=== PATIENT | male | born 1935 | race Caucasian/White ===

== ENCOUNTER 2024-05-22 12:37 | Inpatient (IN) | payer OTHER ==
[~2024-05-22] VITALS: Ht 167.6 cm; Wt 78.0 kg
[2024-05-22] MEDS ORDERED: NS 1,000 ML IV SCH (15:30)
[2024-05-22] MEDS ORDERED: CefTRIAXone Sodium 1,000 MG in NS 100 ML IV ONE (15:30)
[2024-05-22] MEDS ORDERED: Guaifenesin/Dextromethorphan Syrup 5 ML UDC PO PRN (16:20)
[2024-05-22] MEDS ORDERED: Ondansetron HCl 2 MG / ML 2ML Vial IV PRN (16:25)
[2024-05-22] MEDS ORDERED: Albuterol 2.5 MG/3 ML VIAL INH PRN (16:25)
[2024-05-22] MEDS ORDERED: Lactated Ringer's 1,000 ML IV SCH (16:25)
[2024-05-22] MEDS ORDERED: FLU VACC TS2024-25(6MOS UP)/PF 45 MCG/0.5 ML SYRINGE IM PRN (16:25)
[2024-05-22] MEDS ORDERED: Azithromycin 500 MG in NS 250 ML IV ONE (16:50)
[2024-05-22] MEDS ORDERED: Oseltamvir Phosphate 6 MG/ML 1MLORALSYR PO ONE (16:53)
[2024-05-22 18:35] LABS: Source, Urine Clean Catch
[2024-05-22 18:39] LABS: Appearance, Urine Hazy (Clear); Bilirubin, Urine Neg (Neg); Blood, Urine 2+ (Neg); Color, Urine Yellow (P-Yellow); Glucose Qualitative, Urine Neg (Neg); Ketones, Urine 3+ (Neg); Leukocyte Esterase, Urine 1+ (Neg); Nitrite, Urine Neg (Neg); Protein, Urine 4+ (Neg); Urobilinogen, Urine 1+ (Normal)
[2024-05-22 18:48] LABS: Amorphous Light (0-Heavy)
[2024-05-22 18:49] LABS: Red Blood Cells, Urine 0-2 /hpf (0-2)
[2024-05-22 18:50] LABS: Bacteria Mod /hpf; Squamous Epithelial Cells Not Seen /hpf (Few); Transitional Epithelial Cells Rare /hpf (0-Rare)
[2024-05-22 19:04] VITALS: BP 129/72
[2024-05-22 20:34] VITALS: BP 122/66
[2024-05-22] MEDS ORDERED: Lactobacil 2-S.Thermo-Bifido 1 1 Cap PO SCH ×2 (21:00)
[2024-05-22 22:00] LABS: Adenovirus Not Detected (NOT DETECT); Coronavirus 229E Not Detected (NOT DETECT); Coronavirus HKU1 Not Detected (NOT DETECT); Coronavirus NL63 Not Detected (NOT DETECT); Coronavirus OC43 Not Detected (NOT DETECT); Human Metapneumovirus Not Detected (NOT DETECT); Human Rhinovirus/Enterovirus Not Detected (NOT DETECT); Influenza A/H3 Not Detected (NOT DETECT); SARS-Cov-2 (COVID-19), BioFire Not Detected (NOT DETECT)
[2024-05-22 22:01] LABS: Bordetella pertussis Not Detected (NOT DETECT); Chlamydophila pneumoniae Not Detected (NOT DETECT); Influenza A/2009-H1 Detected (NOT DETECT); Influenza A/H1 Not Detected (NOT DETECT); Influenza B Not Detected (NOT DETECT); Mycoplasma pneumoniae Not Detected (NOT DETECT); Parainfluenza Virus 1 Not Detected (NOT DETECT); Parainfluenza Virus 2 Not Detected (NOT DETECT); Parainfluenza Virus 3 Not Detected (NOT DETECT); Parainfluenza Virus 4 Not Detected (NOT DETECT); Respiratory Syncytial Virus Not Detected (NOT DETECT)
--- NOTE | 2024-05-22 22:17 | NUR ---
ADMISSION NOTE PT ARRIVED TO RM 359 AT 1900. PT WAS ACCOMPANIED BY GRAND DAUGHTER. PT WAS AOX4, CALM AND COOPERATIVE. PT ON 2LNC. TELE WAS ALSO STARTED AND CONFIRMED. CALL LIGHT WAS EXPLAINED TO PT, AND PT VERBALIZED UNDERSTANDING. BED LOCKED IN LOWEST POSITION. THIS RN TO ASSUME CARE.
[2024-05-23 00:12] VITALS: BP 131/67
[2024-05-23 03:56] VITALS: BP 145/75
[2024-05-23 03:57] VITALS: BP 145/75
[2024-05-23 05:31] LABS: Hematocrit 26.2 % (37.0-53.0); Hemoglobin 9.5 g/dL (13.5-17.5); Mean Corpuscular HGB 39.6 pg (26.0-34.0); Mean Corpuscular HGB Conc 36.3 g/dL (31.5-36.5); Mean Platelet Volume 10.1 fL (9.1-12.4); Platelet Count 105 K/mm3 (150-400); RDW Standard Deviation 57.6 fL (35.1-46.3)
[2024-05-23 05:35] LABS: Mean Corpuscular Volume 109 fL (80-100)
[2024-05-23 05:36] LABS: White Blood Cell Count 70.16 K/mm3 (4.00-11.30)
[2024-05-23 06:04] LABS: Albumin, Blood 2.1 g/dL (3.4-5.0); Albumin/Globulin Ratio 0.6 (0.8-1.8); Bilirubin, Total 0.5 mg/dL (0.1-1.0); Calcium, Blood 7.7 mg/dL (8.5-10.1); Creatinine, Blood 0.8 mg/dL (0.60-1.20); Globulin, Blood 3.8 g/dL (2.2-4.0); Potassium, Blood 4.1 mmol/L (3.5-5.5); Total Protein, Blood 5.9 g/dL (6.4-8.2)
[2024-05-23 06:25] LABS: BASOPHILS PERCENT MAN 0 % (0-2); EOSINOPHILS PERCENT MAN 0 % (0-6); LYMPHOCYTES % ATYPICAL MANUAL 11 % (0-0); LYMPHOCYTES ABSOLUTE MAN 64.54 K/mm3 (0.84-5.20); LYMPHOCYTES PERCENT MAN 81 % (21-46); MONOCYTES PERCENT MAN 1 % (4-13); NEUTROPHILS ABSOLUTE MAN 4.91 K/mm3 (1.96-9.15); SEG NEUTROPHILS PERCENT MAN 7 % (41-73); TOTAL CELLS COUNTED 100
--- NOTE | 2024-05-23 06:37 | NUR ---
SHIFT SUMMARY PT HAS BEEN RESTING IN BED COMFORTABLY. PT ARRIVED ON UNIT AT 1900. HIS DAUGHTER ACCOMPANIED HIM, AND HAS STAYED WITH HIM THROUGHOUT THE NIGHT. PT HAS BEEN AOX4, CALM AND COOPERATIVE. TELEMETRY IS ON. PT HAS BEEN UP TO GO TO RESTROOM WITH WALKER AND NURSE ASSIST. PT HAS HAD NO COMPLAINTS. PT HAD UNEVENTFUL EVENING.
[2024-05-23 08:31] VITALS: BP 136/72
[2024-05-23] MEDS ORDERED: CefTRIAXone Sodium 1,000 MG in NS 100 ML IV SCH (09:00)
[2024-05-23] MEDS ORDERED: PredniSONE 20 MG Tab PO SCH (09:00)
[2024-05-23] MEDS ORDERED: Oseltamvir Phosphate 6 MG/ML 1MLORALSYR PO SCH (09:00)
[2024-05-23] MEDS ORDERED: Enoxaparin 40 MG/0.4 ML SYR SC SCH (09:00)
[2024-05-23] MEDS ORDERED: Azithromycin 200 MG/5 ML SUSP 5ML UDC PO SCH (09:00)
[2024-05-23] MEDS ORDERED: Acetaminophen 325 MG TABLET PO PRN (14:40)
[2024-05-23 15:13] VITALS: BP 126/68
--- NOTE | 2024-05-23 18:14 | NUR ---
NO CHANGES FOR THE PT. PT HAS SOB UPON AMBULATION. AT REST PT IS ON 2LNC AND UPON AMBULATION WILL REQUIRE 3-4 TO SUSTAIN 95%>. PT HAD NO C/O PAIN DURING THE SHIFT. FAMILY AT BEDSIDE FOR THE SHIFT WITH NO QUESTIONS OR CONCERNS.
[2024-05-23 20:25] VITALS: BP 131/75
[2024-05-24 00:14] VITALS: BP 128/83
[2024-05-24 05:00] VITALS: BP 131/78
--- NOTE | 2024-05-24 05:33 | NUR ---
SHIFT SUMMARY PT HAS BEEN RESTING IN BED COMFORTABLY OVERNIGHT. PT HAS BEEN AOX4, CALM AND COOPERATIVE. HE HAS BEEN ON 2L AT REST, AND 3-4 WHEN UP. PT TRANSF[place] [facility] [place]. PT HAD NO COMPLAINTS OVERNIGHT. NO ACUTE EVENTS OVERNIGHT.
[2024-05-24 08:29] VITALS: BP 135/72
[2024-05-24 09:20] LABS: Hematocrit 30.7 % (37.0-53.0); Hemoglobin 10.4 g/dL (13.5-17.5); Mean Corpuscular HGB 35.4 pg (26.0-34.0); Mean Corpuscular HGB Conc 33.9 g/dL (31.5-36.5); Mean Platelet Volume 10.2 fL (9.1-12.4); NRBC ABSOLUTE 0.02 K/mm3 (0.00-0.02); Platelet Count 123 K/mm3 (150-400); RDW Coefficient Variation 15.2 % (11.7-14.2); RDW Standard Deviation 55.7 fL (35.1-46.3); Red Blood Cell Count 2.94 M/mm3 (4.30-5.90)
[2024-05-24 09:22] LABS: Mean Corpuscular Volume 104 fL (80-100)
[2024-05-24 09:24] LABS: White Blood Cell Count 93.88 K/mm3 (4.00-11.30)
[2024-05-24 09:34] LABS: Bun/Creatinine Ratio 29.7 (12.0-20.0); Calcium, Blood 7.8 mg/dL (8.5-10.1); Creatinine, Blood 0.84 mg/dL (0.60-1.20); Potassium, Blood 4.4 mmol/L (3.5-5.5)
[2024-05-24] MEDS ORDERED: Zinc Sulfate 220 MG Cap (Provides 50MG) PO SCH (10:55)
[2024-05-24 11:19] VITALS: BP 140/75
[2024-05-24 11:37] LABS: BASOPHILS PERCENT MAN 0 % (0-2); EOSINOPHILS PERCENT MAN 0 % (0-6); LYMPHOCYTES ABSOLUTE MAN 92.94 K/mm3 (0.84-5.20); LYMPHOCYTES PERCENT MAN 99 % (21-46); MONOCYTES PERCENT MAN 0 % (4-13); NEUTROPHILS ABSOLUTE MAN 0.93 K/mm3 (1.96-9.15); SEG NEUTROPHILS PERCENT MAN 1 % (41-73); TOTAL CELLS COUNTED 100
[2024-05-24] MEDS ORDERED: Mometasone Furoate Inhaler 220 mcg 14 ACT INH SCH (11:40)
[2024-05-24] MEDS ORDERED: Ipratropium/Albuterol SulF 2.5-0.5MG/3 ML Amp INH SCH (14:50)
[2024-05-24] MEDS ORDERED: Albuterol 2.5 MG/3 ML VIAL INH PRN (14:50)
[2024-05-24] MEDS ORDERED: MethylPREDNISolone Sod Succ 125 MG Vial IV SCH (16:00)
[2024-05-24 16:01] VITALS: BP 123/73
--- NOTE | 2024-05-24 17:50 | NUR ---
PT WBC KEEP ON OZIEL ARNOLD AWARE. T HAD TEM EARLIER IN THE DAY WITH HIGH RESPERATIONS, PRN TYLENOL RESOLVED TEMP. PT HAS NO C/O PAJN, SOB OR CHEST PAIN. SEE CHART FOR DETAILS ON VITALS AND LABS. PT HAS NO QUESTIONS OR CONCERNS AT THIS TIME
[2024-05-24] MEDS ORDERED: Piperacillin/Tazobactam Sod 4.5 GM in NS 100 ML IV SCH (18:00)
[2024-05-24 20:24] VITALS: BP 129/82
[2024-05-25 00:33] VITALS: BP 117/68
[2024-05-25 04:18] VITALS: BP 123/71
--- NOTE | 2024-05-25 04:26 | NUR ---
SHIFT SUMMARY; PATIENT REMAINED IN BED ALL SHIFT WAS ABLE TO VOID IN URINAL AND ALSO INCONT OF URINE. GAVE PRN TYLENOL AND ROBITUSSIN. TELE SR 85. REMAINS ON DROPLET ISOLATION.
[2024-05-25 05:13] LABS: Hematocrit 28.5 % (37.0-53.0); Hemoglobin 9.7 g/dL (13.5-17.5); Mean Corpuscular HGB 34.8 pg (26.0-34.0); Mean Corpuscular Volume 102 fL (80-100); Mean Platelet Volume 10.7 fL (9.1-12.4); NRBC ABSOLUTE 0.02 K/mm3 (0.00-0.02); Platelet Count 119 K/mm3 (150-400); RDW Coefficient Variation 15.1 % (11.7-14.2); RDW Standard Deviation 54.1 fL (35.1-46.3); Red Blood Cell Count 2.79 M/mm3 (4.30-5.90)
[2024-05-25 05:46] LABS: White Blood Cell Count 87.83 K/mm3 (4.00-11.30)
[2024-05-25 06:33] LABS: Bun/Creatinine Ratio 31.3 (12.0-20.0); Calcium, Blood 7.4 mg/dL (8.5-10.1); Creatinine, Blood 0.86 mg/dL (0.60-1.20); Potassium, Blood 4.4 mmol/L (3.5-5.5)
[2024-05-25] MEDS ORDERED: NS 250 ML IV PRN (06:40)
[2024-05-25 06:58] LABS: BASOPHILS PERCENT MAN 0 % (0-2); EOSINOPHILS PERCENT MAN 0 % (0-6); LYMPHOCYTES ABSOLUTE MAN 83.43 K/mm3 (0.84-5.20); LYMPHOCYTES PERCENT MAN 95 % (21-46); MONOCYTES ABSOLUTE MAN 3.51 K/mm3 (0.16-1.47); MONOCYTES PERCENT MAN 4 % (4-13); NEUTROPHILS ABSOLUTE MAN 0.87 K/mm3 (1.96-9.15); SEG NEUTROPHILS PERCENT MAN 1 % (41-73); TOTAL CELLS COUNTED 100
[2024-05-25 09:31] VITALS: BP 129/63
[2024-05-25 13:04] VITALS: BP 124/60
--- NOTE | 2024-05-25 16:45 | NUR ---
SUMMARY PATIENT REQUIRING MORE OXYGEN TODAY. AFTER GETTING UP TO BSC AND UP TO CHAIR THIS AM HAD TO BE INCREASED TO 8L ON HIGH FLOW NASAL CANNULA. WHEN DR. BRISCOE CAME TO ROUND NOTIFIED HER OF INCREASED NEED. SHE ORDERED CONTINUOUS PULSE OX MONITORING, INCENTIVE SPIROMETER THEARPY AND FLUTTER VALVE THERAPY. PATIENT REMAINED IN CHAIR FOR A COUPLE HOURS BUT IS BACK IN BED NOW. DECREASED O2 TO 7L NC AND IS SATTING 90-91% FAMILY REMINDING PATIENT ABOUT BREATHING THERAPIES WHEN STAFF NOT IN ROOM. NONSKID SOCKS ON. BED ALARM SET WHEN LEAVING ROOM. CHAIR ALARM WHEN UP IN CHAIR. PATIENT DOES NOT CALL APPROPRIATELY WHEN ALONE BUT FAMILY HAS BEEN PRESENT MOST OF THE DAY AND ABLE TO HELP PATIENT MAKE NEEDS KNOWN.
[2024-05-25 17:50] VITALS: BP 131/70
[2024-05-25 21:16] VITALS: BP 141/77
[2024-05-26 00:12] VITALS: BP 126/72
[2024-05-26 04:12] VITALS: BP 128/73
--- NOTE | 2024-05-26 05:05 | NUR ---
SHIFT SUMMARY NOC PT A/O X 4. EKWOK AND PLEASANT AND COOPERATIVE WITH CARE. DURNG CHANGE OF SHIFT PT WAS ON 7L/HFNC SITTING ON BSC, BUT DESATTED INTO LOW 80'S W/O RECOVERY, AND WAS PLACED ON 10L/HFNC TO MAINTAIN SPO2 >90%. PT STILL COUGHING UP THICK CALZADA SPUTUM. PT ON TELE SINUS/BBB IN 80'S. PT RECEIVING IV ABX FOR WBC 87.83. PT ON DROPLET ISOLATION FOR INFLUENZA A. PT CURRENTLY RESTING WITH BED IN LOWEST POSITION, AND CALL LIGHT WITHIN REACH.
[2024-05-26 07:17] VITALS: BP 122/75
--- NOTE | 2024-05-26 08:51 | NUR ---
pt is sitting in bed with family in room, a/ox4, pleasant and cooperative with care, follows commands well, denies pain, lungs are clear in upper finn, dim course in bases, currently on via high flow cannula, reports productive cough of white sputum, hrr, tele in place running sr with bbb per monitor, see strip, 1+ edema noted to b/l le, ppp+1, cap refill<3 sec, vs stable, afebrile, piv to rac site is clear and patent, infusing tko at this time, can ambulate with a walker, but has resp intolerance at this time, skin has scattered bruising otherwise clear,mary ramos, call light in reach.
--- NOTE | 2024-05-26 13:55 | NUR ---
DISCUSSED CASE WITH PROVIDER. PULMONOLOGY CONSULTED AT THIS TIME. PATIENT IS CURRENTLY A DNR AND IS PLANNING OF FOLLOWING UP WITH HEMOTOLOGY AFTER DISCHARGE.
[2024-05-26 14:34] VITALS: BP 142/73
[2024-05-26] MEDS ORDERED: Vancomycin HCL 1,500 MG in NS 250 ML IV ONE (15:10)
[2024-05-26 15:33] LABS: PCO2 Arterial 30.7 mmHg (35-45); PO2 Arterial 50.9 mmHg (80-100); pH Blood Arterial 7.51 (7.35-7.45)
[2024-05-26] MEDS ORDERED: Furosemide 10 MG/ML 4ML Vial IV SCH (18:00)
[2024-05-26 18:38] LABS: Magnesium, Blood 2.5 mg/dL (1.6-2.4); Phosphorus, Blood 2.1 mg/dL (2.5-4.9); Uric Acid, Blood 2.6 mg/dL (3.5-7.2)
--- NOTE | 2024-05-26 19:20 | NUR ---
pt is now on airvo, casing material weigher consulted, will keep on medical for now, will azul, after lasix was administered pt was incont with bed change, key cath placed for incont and activity intol, draining clear yellow urine, 14f, placed without diff, pt is breathing a bit easier this evening. call light in reach.
[2024-05-26 19:38] VITALS: BP 133/67
[2024-05-27 00:10] VITALS: BP 130/73
[2024-05-27 04:16] VITALS: BP 125/71
--- NOTE | 2024-05-27 04:31 | NUR ---
SHIFT SUMMARY NOC PT A/O X 4, TUSCARORA. PLEASANT AND COOPERATIVE WITH CARE. VSS. PT PLACED ON AIRVO 45L @ 74% YESTERDAY AFTERNOON TO MAINTAIN SPO2 >92%. PT HAS MAINTAINED SPO2 >92% T/O SHIFT. PT HAD COLE PLACED DURING CHANGE OF SHIFT DUE TO DIURESING. PT HAS HAD GOOD OUTPUT. PT RECEIVING IV ABX FOR INFECTION. PT FAMILY REMAINED WITH PT BEDSIDE FOR DURATION OF SHIFT. PT ON DROPLET ISOLATION FOR INFLUENZA A. PT ON TELE SINUS/BBB IN 80'S. PT CURRENTLY RESTING WITH BED IN LOWEST POSIITION, AND CALL LIGHT WITHIN REACH.
[2024-05-27 06:13] LABS: Bun/Creatinine Ratio 34.5 (12.0-20.0); Calcium, Blood 7.2 mg/dL (8.5-10.1); Creatinine, Blood 0.96 mg/dL (0.60-1.20); Magnesium, Blood 2.4 mg/dL (1.6-2.4); Phosphorus, Blood 4.2 mg/dL (2.5-4.9); Potassium, Blood 3.8 mmol/L (3.5-5.5)
[2024-05-27 08:44] VITALS: BP 129/71
[2024-05-27 13:17] VITALS: BP 122/70
[2024-05-27] MEDS ORDERED: Vancomycin HCL 1,250 MG in NS 250 ML IV SCH (15:00)
[2024-05-27 17:56] VITALS: BP 151/78
[2024-05-27] MEDS ORDERED: Ibuprofen 400 MG Tab PO PRN (18:50)
[2024-05-27 19:50] VITALS: BP 125/60
--- NOTE | 2024-05-27 21:21 | NUR ---
DR HASSAN CALLED AND REPORTED IF PATIENT TEMP IS NOT LOWER THAN TRANSFER TO PCU. TEMP WAS 102.8 DOWN TO 98.5. DAY SHIFT RN REPORTS TYLENOL GIVEN EARLIER. DR HASSAN ALSO ORDERED IBUPROFEN 400 FOR FEVER PRN. WCTM.
[2024-05-28 00:33] VITALS: BP 132/64
[2024-05-28 04:57] VITALS: BP 140/67
[2024-05-28 05:09] LABS: Hemoglobin 9.2 g/dL (13.5-17.5); Mean Corpuscular HGB 35.2 pg (26.0-34.0); Mean Corpuscular HGB Conc 34.1 g/dL (31.5-36.5); Mean Corpuscular Volume 103 fL (80-100); Mean Platelet Volume 10.8 fL (9.1-12.4); NRBC ABSOLUTE 0.04 K/mm3 (0.00-0.02); Platelet Count 105 K/mm3 (150-400); RDW Coefficient Variation 16.2 % (11.7-14.2); RDW Standard Deviation 52.2 fL (35.1-46.3); Red Blood Cell Count 2.61 M/mm3 (4.30-5.90)
--- NOTE | 2024-05-28 05:17 | NUR ---
SHIFT SUMMARY PATIENT HAD NO ACUTE CHANGES. ALERT ORIENTED AND WRANGELL. COLE PATENT AND DRAINING TO GRAVITY. ON AIRVO 45 L @ 74%. TELE MONITOR NSR 79. DENIES CHEST PAIN AND N/V. VSS/AFEBRILE @ 98.5. NEXT TEMP 100.8 AND TYLENOL 650 MG GIVEN. FAMILY PRESENT AT SHIFT CHANGE. PIV INTACT. IV ABX INFUSED. SLEPT MOST OF THE SHIFT. CALL LIGHT IN REACH. BED IN LOWEST POSITION. WILL CONTINUE TO MONITOR UNTIL DAY SHIFT NURSE ASSUMES CARE
[2024-05-28 05:22] LABS: White Blood Cell Count 125.79 K/mm3 (4.00-11.30)
[2024-05-28 05:37] LABS: Bun/Creatinine Ratio 29.1 (12.0-20.0); Creatinine, Blood 0.93 mg/dL (0.60-1.20); Potassium, Blood 3.9 mmol/L (3.5-5.5)
--- NOTE | 2024-05-28 05:48 | NUR ---
[facility] LAB: WBC 125.79. PREVIOUS 87.83 ON 05/25/24. HOSPITALIST DR MARR NOTIFIED AND WILL REVIEW PATIENT CHART. WCTM.
[2024-05-28 06:35] LABS: BASOPHILS PERCENT MAN 0 % (0-2); EOSINOPHILS PERCENT MAN 0 % (0-6); LYMPHOCYTES ABSOLUTE MAN 120.75 K/mm3 (0.84-5.20); LYMPHOCYTES PERCENT MAN 96 % (21-46); MONOCYTES PERCENT MAN 0 % (4-13); NEUTROPHILS ABSOLUTE MAN 5.03 K/mm3 (1.96-9.15); SEG NEUTROPHILS PERCENT MAN 4 % (41-73); TOTAL CELLS COUNTED 100
[2024-05-28 08:00] VITALS: BP 130/64
--- NOTE | 2024-05-28 11:57 | NUR ---
PALLIATIVE CARE AND DR MCCOLLUM ROUNDED ON PATIENT, FAMILY AT BEDSIDE, PATIENT POSSIBLE TO BE CHANGED TO PALLIATIVE CARE TODAY OR TOMORROW
--- NOTE | 2024-05-28 16:59 | NUR ---
MET WITH PATIENT AND PROVIDER TO DISCUSS GOALS OF CARE. FAMILY IS LEANING TOWARDS COMFORT AND HOSPICE SERVICES. RELAYED WHAT THOSE SERVICES WOULD PROVIDE. EXPRESSED THAT IF THAT WERE THE DIRECTION THEY WANTED TO GO THAT WE WOULD TRANSITION TO COMFORT CARE HERE WITH THE GOAL TO TRANSFER TO HOME WITH HOSPICE IF HE IS STABLE. FAMILY WOULD LIKE TO DISCUSS WITH THE REST OF THEIR FAMILY AND WILL UPDATE US.
--- NOTE | 2024-05-28 19:03 | NUR ---
NO CHANGES OR IMPROVEMENTS, MEDICATED WITH TYLENOL AND IBUPHROFEN, POSSIBLE CHANGE TO PALLIATIVE/COMFORT CARE TOMORROW, FAMILY HELPFUL WITH CARE
[2024-05-28 19:31] VITALS: BP 151/116
[2024-05-28] MEDS ORDERED: Metoprolol Tartrate 1 MG/ML 5 ML VIAL IV ONE (20:00)
--- NOTE | 2024-05-28 20:42 | NUR ---
PATIENT CONVERTED FROM NSR TO AFIB 130-150. HOSPITALIST DR LOOMIS ORDERED IV LOPRESSOR 5 MG X ONE. HR NOW 103-113. WCTM.
--- NOTE | 2024-05-28 21:08 | NUR ---
FAMILY REPORTS PATIENT FEELING SOB. RT IN FOR BREATHING TX AND REPORTS MAY INCREASE HIS AIRVO FROM 45L TO 50L. RT WILL REPORT BACK. WCTM.
--- NOTE | 2024-05-28 23:01 | NUR ---
OPEN HEARTH FURNACE LABORER REPORTS PATIENT CONVERT BACK TO NSR 73 FROM AFIB. SLEEPING WITH ONE FAMILY MEMBER IN ROOM. TM.
[2024-05-29 01:03] VITALS: BP 89/48
[2024-05-29] MEDS ORDERED: Morphine Sulfate 20 MG/1ML 1 ML Oral Syringe SL PRN ×2 (03:15→09:40)
--- NOTE | 2024-05-29 04:10 | NUR ---
SHIFT SUMMARY FAMILY DECIDED TO PLACE PATIENT ON COMFORT CARE. HOSPITALIST DR MARR PUT IN ORDERS AND SAW FAMILY IN ROOM. AXOX 3 AND BEDREST. ON AIRVO. PIV INTACT. IV ABXS INFUSED. COLE PATIENT AND DRAINING TO GRAVITY. ELEVATED HR PER TECH AND RESOLVED WITH MEDS (SEE NOTE). DENIES CHEST PAIN AND N/V. SLEPT MOST OF THE SHIFT. FAMILY PRESENT T/O SHIFT. CALL LIGHT IN REACH. BED IN LOWEST POSITION. WILL CONTINUE TO MONITOR UNTIL DAY SHIFT NURSE ASSUMES CARE.
--- NOTE | 2024-05-29 09:19 | NUR ---
Pastoral care visitation conducted. Patient's family were in the room and were welcoming. They shared at brief regarding the situation then proceeded to reflect upon the patient's life. Guided conversation and emotional support extended. Prayer was requested by the family and readily recieved when provided. Family are coping appropriately with anticipatory grief and have josephine support for processing end of life issues and concerns. Will remain available for as needed PC support.
[2024-05-29] MEDS ORDERED: Scopolamine Hydrobromide Patch TOP PRN (09:45)
[2024-05-29] MEDS ORDERED: LORazepam 1 MG Tab PO PRN (09:45)
[2024-05-29] MEDS ORDERED: Acetaminophen 650 MG Supp PR PRN (09:45)
[2024-05-29] MEDS ORDERED: Atropine Sulfate 1% Opth Soln 2ML BTL SL PRN (09:45)
[2024-05-29] MEDS ORDERED: Promethazine HCl 25 MG Supp PR PRN (09:45)
--- NOTE | 2024-05-29 15:43 | NUR ---
MET WITH FAMILY TO DISCUSS PLAN OF CARE. PATIENT WAS TRANSITIONS TO COMFORT MEASURES. REVIEWED GOALS WITH THIS SHIFT OF CARE. PROVIDER AT BEDSIDE FOR DISCUSSION. PROVIDED COPY OF THE ELEVENTH HOUR. WILL PLAN TITRATION OFF AIRVO TO NC THROUGHOUT THIS SHIFT PATIENT TOLORATES. PC WILL CONTINUE TO FOLLOW
--- NOTE | 2024-05-30 04:10 | NUR ---
SHIFT SUMMARY PATIENT ON COMFORT CARE. APNEIC BREATHING. ROXANOL 20 MG GIVEN X 2 AND ATROPINE DROPS GIVEN PER EMAR. SON AND FAMILY PRESENT T/O SHIFT. ON OXYMASK WITH 11 L O2. PATIENT TURNED PRN. COLE PATENT AND DRAINING TO GRAVITY. SLEEPING BUT AROUSABLE. CALL LIGHT IN REACH. BED IN LOWEST POSITION. WILL CONTINUE TO MONITOR UNTIL DAY SHIFT NURSE ASSUMES CARE.
[2024-05-30 06:09] LABS: IMMUNOGLOBULIN G 747 mg/dL (768-1632)
--- NOTE | 2024-05-30 19:37 | NUR ---
PT FAMILY NOTIFIED THIS NURSE THAT THEY THOUGHT PT HAD PASSED. NO APICAL PULSE, NOTED VERIFIED WITH KYAW HUTCHISON. FAMILY STATED THEY WOULD LET STAFF KNOW WHEN THEY WERE ALL DONE SAYING THERE GOOD BYES AND NOTIFY US OF THE HOME OF THERE CHOICE. CHARGE NURSE NOTIFIED.
--- NOTE | 2024-05-30 21:00 | NUR ---
FAMILY SPECIFIED [facility] DESIRED HOME. THEY DENIED NEEDING PASTORAL CARE AND STATED THEY'D PREVIOUSLY TAKEN ALL BELONGINGS HOME. RN GROUND WATER TECHNICIAN (KRANTHI Taveras), COIN WRAPPING MACHINE OPERATOR (ROXANNE Webb) AND AWARE OF PT'S PASSING W/SACHIN GUZMAN (HOME REP) HERE TO OPEN SOURCE DEVELOPER PT AT 2046.
== END 2024-05-30 19:15 | DRG 871 ==
LOC: ER 12:37 → MEDS 12:38
PROVIDERS: Internal Medicine; Student in an Organized Health Care Education/Training Program; ADMIT Internal Medicine
PROC: 3E03329 Introduction of Other Anti-infective into Peripheral Vein, Percutaneous Approach (ICD-10-PCS; 2024-05-22)
PROC: 4A033R1 Measurement of Arterial Saturation, Peripheral, Percutaneous Approach (ICD-10-PCS; principal; 2024-05-26)
PROC: 5A0935A Assistance with Respiratory Ventilation, Less than 24 Consecutive Hours, High Flow/Velocity Cannula (ICD-10-PCS; 2024-05-28)
DX: A41.89 Other specified sepsis (principal); J15.9 Unspecified bacterial pneumonia; J69.0 Pneumonitis due to inhalation of food and vomit; J96.01 Acute respiratory failure with hypoxia; N17.9 Acute kidney failure, unspecified; C85.93 Non-Hodgkin lymphoma, unspecified, intra-abdominal lymph nodes; J90 Pleural effusion, not elsewhere classified; Z66 Do not resuscitate; Z51.5 Encounter for palliative care; R65.20 Severe sepsis without septic shock; J10.1 Influenza due to other identified influenza virus with other respiratory manifestations; K44.9 Diaphragmatic hernia without obstruction or gangrene; R05.1 Acute cough; E87.70 Fluid overload, unspecified; R11.2 Nausea with vomiting, unspecified; Z79.899 Other long term (current) drug therapy
CPT/HCPCS: 0202U; 36415; 36600; 71045; 71046; 71250; 71260; 74176; 80048; 80053; 81001; 82784; 82803; 83605; 83735; 84100; 84484; 84550; 85025; 87040; 87086; 93005; 93010; 94640; 94664; 94760; 94762; 96365; 96367; 96372; 96376; 99285-25; A9270; G0378; J0456; J0696; J1650; J1940; J2543; J2919; J3370; J7030; J7040; J7050; J7120; J7512; Q9967

== ENCOUNTER → 2024-05-22 | Outpatient (CLI) | payer OTHER ==
[2024-05-22 11:25] LABS: EOSINOPHILS PERCENT AUTO 0 % (0-6); Hematocrit 32.8 % (37.0-53.0); Hemoglobin 10.6 g/dL (13.5-17.5); Mean Corpuscular HGB 32.6 pg (26.0-34.0); Mean Corpuscular HGB Conc 32.3 g/dL (31.5-36.5); Mean Corpuscular Volume 101 fL (80-100); Mean Platelet Volume 9.9 fL (9.1-12.4); Platelet Count 142 K/mm3 (150-400); RDW Coefficient Variation 14.7 % (11.7-14.2); RDW Standard Deviation 53.5 fL (35.1-46.3); Red Blood Cell Count 3.25 M/mm3 (4.30-5.90)
[2024-05-22 11:29] LABS: BASOPHILS ABSOLUTE AUTO 0.11 K/mm3 (0.00-0.23); BASOPHILS PERCENT AUTO 0 % (0-2); IMMATURE GRAN ABSOLUTE AUTO 0.07 K/mm3 (0.00-0.10); IMMATURE GRAN PERCENT AUTO 0 % (0-1); LYMPHOCYTES ABSOLUTE AUTO 84.57 K/mm3 (0.84-5.20); LYMPHOCYTES PERCENT AUTO 92 % (21-46); MONOCYTES ABSOLUTE AUTO 5.16 K/mm3 (0.16-1.47); MONOCYTES PERCENT AUTO 6 % (4-13); NEUTROPHILS ABSOLUTE AUTO 2.04 K/mm3 (1.96-9.15); NEUTROPHILS PERCENT AUTO 2 % (41-73)
[2024-05-22 11:31] LABS: White Blood Cell Count 91.95 K/mm3 (4.00-11.30)
[2024-05-22 11:35] LABS: Albumin, Blood 2.5 g/dL (3.4-5.0); Albumin/Globulin Ratio 0.6 (0.8-1.8); Bilirubin, Total 0.6 mg/dL (0.1-1.0); Bun/Creatinine Ratio 20.9 (12.0-20.0); Calcium, Blood 8.1 mg/dL (8.5-10.1); Creatinine, Blood 1.29 mg/dL (0.60-1.20); Globulin, Blood 4.5 g/dL (2.2-4.0); Potassium, Blood 4.6 mmol/L (3.5-5.5)
[2024-05-22 11:56] LABS: BASOPHILS PERCENT MAN 0 % (0-2); EOSINOPHILS PERCENT MAN 0 % (0-6); LYMPHOCYTES % ATYPICAL MANUAL 86 % (0-0); LYMPHOCYTES ABSOLUTE MAN 86.43 K/mm3 (0.84-5.20); LYMPHOCYTES PERCENT MAN 8 % (21-46); MONOCYTES ABSOLUTE MAN 1.83 K/mm3 (0.16-1.47); MONOCYTES PERCENT MAN 2 % (4-13); NEUTROPHILS ABSOLUTE MAN 3.67 K/mm3 (1.96-9.15); SEG NEUTROPHILS PERCENT MAN 4 % (41-73); TOTAL CELLS COUNTED 100
== END ==
LOC: LAB 11:20 → LAB SHORT 11:20
DX: R11.2 Nausea with vomiting, unspecified (principal)
CPT/HCPCS: 80053; 85025